=== PATIENT | female | born 1985 | race Caucasian/White ===

== ENCOUNTER → 2017-03-08 | Outpatient (CLI) | payer BC | END | disposition home or self-care (01) | LOC: C.LAB 15:44 | PROVIDERS: ATTEND Obstetrics & Gynecology | DX: O26.811 Pregnancy related exhaustion and fatigue, first trimester (principal) ==

== ENCOUNTER → 2017-03-23 | Outpatient (CLI) | payer BC ==
[2017-03-23 12:58] LABS: BASO % 0.2 %; BASO ABS # 0.02 K/uL (0-0.2); COMPLETE YES; EOS % 0.6 %; HEMATOCRIT 34.9 % (37-47); IG% 0.3 %; LYMPH % 24.3 %; MEAN CELL VOLUME 88.4 fL (80-100); MEAN CORPUSCULAR HEMOGLOBIN 30.6 pg (25-34); MEAN CORPUSCULAR HGB CONC 34.7 g/dl (32-36); MEAN PLATELET VOLUME 10.9 fL (7.4-10.4); MONO % 6.6 %; PLATELET COUNT 235 K/uL (130-400); RED BLOOD COUNT 3.95 M/uL (4.2-5.4); WHITE BLOOD COUNT 8.63 K/uL (4.8-10.8)
[2017-03-23 13:38] LABS: FERRITIN 64.1 ng/ml (8.0-388.0)
[2017-03-27 11:40] LABS: MICROSOMAL AB <1 IU/ML (<9); T3 REVERSE **TC 90963 15 ng/dL (8-25)
== END | disposition home or self-care (01) ==
LOC: C.LAB 11:38
PROVIDERS: ATTEND Chiropractor
DX: M79.1 Myalgia (principal)

== ENCOUNTER → 2017-04-17 | Outpatient (CLI) | payer BC ==
[2017-04-17 11:23] LABS: GTGD 50 Grams
== END | disposition home or self-care (01) ==
LOC: C.LAB 07:21
PROVIDERS: ATTEND Obstetrics & Gynecology
DX: Z34.82 Encounter for supervision of other normal pregnancy, second trimester (principal)

== ENCOUNTER → 2017-08-20 | Outpatient (CLI) | payer BC | END | disposition home or self-care (01) | LOC: C.LABSPEC 14:15 | PROVIDERS: ATTEND Obstetrics & Gynecology | DX: Z34.83 Encounter for supervision of other normal pregnancy, third trimester (principal) ==

== ENCOUNTER 2017-09-17 18:17 | Inpatient (IN) | payer BC, OTHER ==
[~2017-09-17] VITALS: Ht 165.1 cm; Wt 72.3 kg
[2017-09-17] MEDS ORDERED: OXYTOCIN INJ 10 UNITS/ML VIAL ONE (18:41)
[2017-09-17] MEDS ORDERED: LANOLIN OINT EXT PRN (19:00)
[2017-09-17] MEDS ORDERED: HYDROCORTISONE ACETATE 25 MG SUPP PR PRN (19:00)
[2017-09-17] MEDS ORDERED: BENZOCAINE 20% AER SPR 82.5 GM CAN EXT PRN (19:00)
[2017-09-17] MEDS ORDERED: DIPHTHERIA/TETANUS/PERTUSSIS 0.5 ML SYR/VIAL IM. ONE (19:00)
[2017-09-17] MEDS ORDERED: PATIENT'S ALLERGY INFO NEEDS ENTERED SCH (19:00)
[2017-09-17] MEDS ORDERED: OXYCODONE/ACETAMINOPHEN 5-325 TAB PO PRN (19:00)
[2017-09-17] MEDS ORDERED: OXYTOCIN INJ 10 UNITS/ML VIAL IM ONE (19:00)
[2017-09-17] MEDS ORDERED: ACETAMINOPHEN/CODEINE 300/30MG TAB PO PRN ×2 (19:00)
[2017-09-17] MEDS ORDERED: ACETAMINOPHEN 325 MG TAB PO PRN (19:00)
[2017-09-17] MEDS ORDERED: SUPERCREAM 0.870 % 15GM JAR EXT PRN (19:00)
--- NOTE | 2017-09-17 19:02 | DELIVERY SUMMARY ---
DATE OF OPERATION: 09/17/2017 31-year-old 4, para 3, one first trimester spontaneous AB. Her blood type is O positive, rubella immune. She is on Lexapro 5 mg daily for depression, previously had been on Zoloft and she was given Celestone 12 mg at about 32.9 weeks and she was placed on Procardia #2 until she was about 36 weeks for contractions. She was seen in the office today; she was 5-6 cm dilated and she called later this afternoon saying she was in active labor. When she got to the labor floor her membranes had ruptured spontaneously. Fluid was clear. She was fully dilated. She did not request any pain medications and desired not to have an IV. She just pushed several times and pushed out a live female via direct occiput anterior position. Shoulders were delivered without difficulty and then the infant was placed on the patient's abdomen with the cord intact as per her request. After several minutes, the cord stopped pulsing. Cord was clamped and cut. Cord blood was taken. She was given 10 units of IM Pit in the thigh. Placenta was removed intact. Pelvic exam revealed no hematoma formation. No lacerations. Uterus contracted nicely. Estimated blood loss 500 mL. Estimated 1 and 5 minute Apgars were 8 and 9 respectively. I attest to the content of the Intraoperative Record and any orders documented therein. Any exception s are noted below.
[2017-09-17 19:12] LABS: HEMATOCRIT 34.4 % (37-47); MEAN CELL VOLUME 90.3 fL (80-100); MEAN CORPUSCULAR HEMOGLOBIN 31.5 pg (25-34); MEAN CORPUSCULAR HGB CONC 34.9 g/dl (32-36); MEAN PLATELET VOLUME 10.3 fL (7.4-10.4); PLATELET COUNT 237 K/uL (130-400); RED CELL DISTRIBUTION WIDTH CV 13.9 % (11.5-14.5); RED CELL DISTRIBUTION WIDTH SD 45.6 fL (36.4-46.3); WHITE BLOOD COUNT 16.13 K/uL (4.8-10.8)
[2017-09-17 19:35] VITALS: Ht 165.1 cm; Wt 72.3 kg
[2017-09-17 21:45] VITALS: BP 107/79; PULSE 75; TEMP 36.7; O2SAT 96
[2017-09-17] MEDS: IBUPROFEN 600 MG TAB PO PRN (22:27)
[2017-09-17] MEDS: DOCUSATE SODIUM 100 MG CAP PO SCH (22:28)
[2017-09-17 23:35] VITALS: BP 107/55; PULSE 76; TEMP 36.8; O2SAT 96
[2017-09-18 03:25] VITALS: BP 102/60; PULSE 62; TEMP 36.6; O2SAT 97
[2017-09-18] MEDS: IBUPROFEN 600 MG TAB PO PRN ×3 (06:10→18:23)
[2017-09-18 07:00] VITALS: BP 99/64; PULSE 66; TEMP 36.6; O2SAT 98
[2017-09-18] MEDS: DOCUSATE SODIUM 100 MG CAP PO SCH ×2 (07:30→20:24)
[2017-09-18] MEDS: PRENATAL VITAMIN TAB PO SCH (07:30)
[2017-09-18] MEDS: FERROUS SULFATE 325 MG TAB PO SCH (07:30)
[2017-09-18] MEDS: ESCITALOPRAM OXALATE 10 MG TAB PO SCH (07:30)
--- NOTE | 2017-09-18 08:54 | Progress Note ---
Subjective Sep 18, 2017. Subjective conversation w/ patient Ambulation: ambulating normally Voiding: no voiding problems Passing Gas: Yes Diet Tolerance: Regular Diet Lochia: Small Feeding Type: Breast Feeding Review of Systems Constitutional: + fever Objective Vital Signs Date Time Temp Pulse Resp B/P (MAP) Pulse Ox O2 Delivery O2 Flow Rate FiO2 09/18/17 07:35 Room Air 09/18/17 07:00 36.6 66 18 99/64 (76) 98 Room Air 09/18/17 03:25 36.6 62 18 102/60 (74) 97 Room Air 09/17/17 23:35 96 Room Air 09/17/17 23:35 36.8 76 18 107/55 (72) 96 Room Air 09/17/17 21:45 36.7 75 18 107/79 (88) 96 Room Air 09/17/17 21:45 Room Air Physical Exam General Appearance: WELL-APPEARING Fundus: Firm, Non-Tender Extremities: no pedal edema, no calf tenderness Laboratory Results Last 24 Hours Test 09/17/17 19:02 White Blood Count 16.13 K/uL Red Blood Count 3.81 M/uL Hemoglobin 12.0 g/dL Hematocrit 34.4 % Mean Corpuscular Volume 90.3 fL Mean Corpuscular Hemoglobin 31.5 pg Mean Corpuscular Hemoglobin Concent 34.9 g/dl RDW Standard Deviation 45.6 fL RDW Coefficient of Variation 13.9 % Platelet Count 237 K/uL Mean Platelet Volume 10.3 fL Assessment and Plan Post- Day#: 1
[2017-09-18 12:35] VITALS: BP 99/63; PULSE 69; TEMP 36.6
[2017-09-18 15:35] VITALS: BP 96/61; PULSE 71; TEMP 36.9
[2017-09-18] MEDS: BISACODYL 5 MG TABEC PO SCH ×2 (20:00→20:24)
[2017-09-18 23:30] VITALS: BP 98/61; PULSE 64; TEMP 36.4
[2017-09-19] MEDS: IBUPROFEN 600 MG TAB PO PRN ×2 (04:29→09:02)
[2017-09-19] MEDS ORDERED: BISACODYL 10 MG SUPP PR PRN (07:00)
[2017-09-19 08:02] LABS: HEMATOCRIT 34.9 % (37-47); HEMOGLOBIN 11.9 g/dL (12.0-16.0)
[2017-09-19] MEDS: FERROUS SULFATE 325 MG TAB PO SCH (08:57)
[2017-09-19] MEDS: ESCITALOPRAM OXALATE 10 MG TAB PO SCH (08:58)
[2017-09-19] MEDS: PRENATAL VITAMIN TAB PO SCH (08:58)
[2017-09-19] MEDS: DOCUSATE SODIUM 100 MG CAP PO SCH (08:58)
[2017-09-19 09:25] VITALS: BP_SYST 114; BP_SYST 91; BP_DIAS 60; BP_DIAS 72; PULSE 66; TEMP 36.3
--- NOTE | 2017-09-19 09:32 | Progress Note ---
Subjective Sep 19, 2017. Subjective conversation w/ patient Ambulation: ambulating normally Voiding: no voiding problems Passing Gas: Yes Diet Tolerance: Regular Diet Lochia: Small Feeding Type: Breast Feeding Review of Systems Constitutional: + fever Objective Vital Signs Date Time Temp Pulse Resp B/P (MAP) Pulse Ox O2 Delivery O2 Flow Rate FiO2 09/19/17 09:25 36.3 114/72 (86) 09/18/17 23:30 36.4 64 18 98/61 (73) Room Air 09/18/17 23:30 Room Air 09/18/17 15:35 Room Air 09/18/17 15:35 36.9 71 16 96/61 (73) Room Air 09/18/17 12:35 36.6 69 16 99/63 (75) Room Air Physical Exam General Appearance: WELL-APPEARING Abdomen: non tender Fundus: Firm, Non-Tender Extremities: no pedal edema, no calf tenderness Laboratory Results Last 24 Hours Test 09/19/17 07:53 Hemoglobin 11.9 g/dL Hematocrit 34.9 % Assessment and Plan Post- Day#: 2
--- NOTE | 2017-09-19 09:34 | Discharge Instructions ---
Discharge Instructions Date of Service Sep 19, 2017. Admission Reason for Admission: Check Labor Discharge Discharge Diagnosis / Problem: active labor Discharge Goals Goal(s): Routine recovery after delivery Activity Recommendations Activity Limitations: as noted below ACTIVITY RECOMMENDATIONS: * Gradual return to full activity over the next 2-3 weeks. * No lifting - nothing heavier than baby over the next 2-3 weeks. * Do not engage in vigorous exercise, sexual activity or sports until cleared by your physician. * Do not drive or operate any motorized equipment until cleared by your physician. * You may shower/bathe daily. DIET: Resume Previous Diet If Breast-feeding: * Increase caloric intake by 500 calories, eat 3 well balanced meals, 2 high protein snacks a day and drink 6-8 8oz. glasses of fluid per day. BREAST CARE: If you are not breast feeding: * Wear a supportive bra 24 hours a day for one to two weeks. * Avoid stimulating your breasts and nipples as much as possible during the first few weeks after delivery. * When taking a shower, have the warm water hit your back, not breasts. * When your breasts feel full, apply ice packs. Usually three to four times a day helps ease the discomfort. * Take a mild pain medication (Tylenol / Motrin) when you are uncomfortable. If breast feeding: * Use breast milk to lubricate nipples. Lansinoh cream may be used for sore nipples. You do not need to remove cream prior to breast feeding. If using a different brand of cream, check the label for directions regarding removal of cream prior to nursing. * Wear a supportive bra. * If having problems with breasts or breast feeding, call a specialty sales consultant or your health care provider. OVER THE COUNTER MEDICATION: * For discomfort or pain, you may use Acetaminophen (Tylenol), Ibuprofen (Advil ), or Naproxen (Aleve) following the package directions. * For constipation you may use Colace following the package directions. SPECIAL CARE INSTRUCTIONS: * Vaginal rest (no tampons, douching, intercourse) until after doctor 's visit. * control as discussed with doctor. * Verbalizes understanding of car seat law as reviewed with patient nursing. * Car Seat hand-out given and reviewed with patient by nursing. * Shaken baby information reviewed with patient by nursing. Call you doctor if: * Temperature greater than or equal to 100.4 degrees F or 38.0 degrees C. Take your temperature twice daily for a week. * Bleeding becomes heavier than the heaviest part of your period - saturating a sanitary pad within an hour. * Passing large clots. * Bleeding has a foul smelling odor. * Signs and symptoms of phlebitis: leg pain, warm, red or swollen area on leg. * "Baby Blues" lasting longer than two weeks. ++ If you have had a and incision has increased pain, redness, swelling, presence of any drainage, or if the incision starts to open up. If you have any questions or concerns, call your health care practitioner at [phone]. FOLLOW-UP VISIT: Please call the office at to schedule a 6 week examination. . Instructions / Follow-Up Instructions / Follow-Up ACTIVITY RECOMMENDATIONS: * Gradual return to full activity over the next 2-3 weeks. * No lifting - nothing heavier than baby over the next 2-3 weeks. * Do not engage in vigorous exercise, sexual activity or sports until cleared by your physician. * Do not drive or operate any motorized equipment until cleared by your physician. * You may shower/bathe daily. DIET: Resume Previous Diet If Breast-feeding: * Increase caloric intake by 500 calories, eat 3 well balanced meals, 2 high protein snacks a day and drink 6-8 8oz. glasses of fluid per day. BREAST CARE: If you are not breast feeding: * Wear a supportive bra 24 hours a day for one to two weeks. * Avoid stimulating your breasts and nipples as much as possible during the first few weeks after delivery. * When taking a shower, have the warm water hit your back, not breasts. * When your breasts feel full, apply ice packs. Usually three to four times a day helps ease the discomfort. * Take a mild pain medication (Tylenol / Motrin) when you are uncomfortable. If breast feeding: * Use breast milk to lubricate nipples. Lansinoh cream may be used for sore nipples. You do not need to remove cream prior to breast feeding. If using a different brand of cream, check the label for directions regarding removal of cream prior to nursing. * Wear a supportive bra. * If having problems with breasts or breast feeding, call a specialty sales consultant or your health care provider. OVER THE COUNTER MEDICATION: * For discomfort or pain, you may use Acetaminophen (Tylenol), Ibuprofen (Advil ), or Naproxen (Aleve) following the package directions. * For constipation you may use Colace following the package directions. SPECIAL CARE INSTRUCTIONS: * Vaginal rest (no tampons, douching, intercourse) until after doctor 's visit. * control as discussed with doctor. * Verbalizes understanding of car seat law as reviewed with patient nursing. * Car Seat hand-out given and reviewed with patient by nursing. * Shaken baby information reviewed with patient by nursing. Call you doctor if: * Temperature greater than or equal to 100.4 degrees F or 38.0 degrees C. Take your temperature twice daily for a week. * Bleeding becomes heavier than the heaviest part of your period - saturating a sanitary pad within an hour. * Passing large clots. * Bleeding has a foul smelling odor. * Signs and symptoms of phlebitis: leg pain, warm, red or swollen area on leg. * "Baby Blues" lasting longer than two weeks. ++ If you have had a and incision has increased pain, redness, swelling, presence of any drainage, or if the incision starts to open up. If you have any questions or concerns, call your health care practitioner at [phone]. FOLLOW-UP VISIT: Please call the office at to schedule a 6 week examination. Current Hospital Diet Patient's current hospital diet: Regular Diet Discharge Diet Recommended Diet: Regular Diet Pending Studies Studies pending at discharge: no Medical Emergencies . Who to Call and When: Medical Emergencies: If at any time you feel your situation is an emergency, please call 911 immediately. . Non-Emergent Contact Non-Emergency issues call your: Cytopathology Technologist Call Non-Emergent contact if: temperature is above 100.5 . . "Provider Documentation" section prepared by Kem Barroso. .
[2017-09-19 17:25] VITALS: BP_DIAS 60; PULSE 64; TEMP 36.3
== END 2017-09-19 17:25 | disposition home or self-care (01) | DRG 775 ==
LOC: C.LD 18:17 → C.OPB 18:17 → C.LD 18:49 → C.OBG 21:44
PROVIDERS: ADMIT Obstetrics & Gynecology; ATTEND Obstetrics & Gynecology
PROC: 10E0XZZ Delivery of Products of Conception, External Approach (ICD-10-PCS; principal; 2017-09-17)
DX: O99.343 Other mental disorders complicating pregnancy, third trimester (principal); F32.9 Major depressive disorder, single episode, unspecified; Z3A.40 40 weeks gestation of pregnancy; Z37.0 Single live birth

== ENCOUNTER → 2017-10-29 | Outpatient (CLI) | payer BC | END | disposition home or self-care (01) | LOC: C.PAPS 14:35 | PROVIDERS: ATTEND Obstetrics & Gynecology | DX: Z39.2 Encounter for routine postpartum follow-up (principal) ==